=== PATIENT | male | born 1950 | race Two or more races ===

== ENCOUNTER 2019-07-29 14:26 | Emergency (ER) | payer OTHER ==
[~2019-07-29] VITALS: Ht 165.1 cm; Wt 90.7 kg
[~2019-07-29 14:26] MED LIST: COZAAR100 MG; DIOVAN40 MG; DOXAZOSIN MESYLA4 MG; FENOFIBRATE134 MG; GEMFIBROZIL600 MG; LIPITOR40 MG; PREDNISONE10 MG; TAMS0.4C
[2019-07-29] MEDS ORDERED: LOSARTAN-HCTZ1 EAC1 PO (14:51)
[2019-07-29] MEDS ORDERED: COLCRYS0.6 MG PO (16:31)
[2019-07-29] MEDS ORDERED: KETO10TA2 PO (16:32)
== END 2019-07-29 16:38 | disposition home or self-care (01) ==
LOC: ER
DX: M10.061 Idiopathic gout, right knee (principal)

== ENCOUNTER 2023-06-18 05:45 | Day surgery (SDC) | payer OTHER ==
[~2023-06-18 05:45] MED LIST changes: +COLCRYS0.6 MG PO; +KETO10TA2 PO; +LOSARTAN-HCTZ1 EAC1 PO
== END 2023-06-18 10:20 | disposition home or self-care (01) ==
LOC: CIR.AMB 05:45
PROVIDERS: ATTEND Surgery Surgery of the Hand
DX: M67.843 Other specified disorders of tendon, right hand (principal); Z20.822 Contact with and (suspected) exposure to COVID-19; I10 Essential (primary) hypertension

== ENCOUNTER 2025-01-13 09:30 | Emergency (ER) | payer OTHER ==
[~2025-01-13] VITALS: Ht 165.1 cm; Wt 90.7 kg
[2025-01-13 09:53] VITALS: BP 164/73; O2SAT 97
[2025-01-13] MEDS ORDERED: ZYLOPRIM100 M1 (09:55)
[2025-01-13] MEDS ORDERED: KETOROLAC TROMETHAMINE 60 MG VIAL IM ONE ×2 (10:15→10:19)
[2025-01-13 11:00] LABS: BASO % 0.2 % (0.1-1.2); EOS # 0.03 (0.04-0.54); EOS % 0.3 % (0.7-7.0); HEMATOCRIT 39.3 % (40.1-51.0); HEMOGLOBIN 13.3 g/dL (13.7-17.5); LYMPH # 1.16 (1.18-3.74); LYMPH % 10.9 % (19.3-53.1); MONO # 1.03 (0.24-0.82); MONO % 9.7 % (4.7-12.5); NEUT # 8.36 (1.56-6.13); NEUT % 78.7 % (34.0-71.1); PLATELET COUNT 281 K/uL (163-369); RED BLOOD COUNT 4.75 M/uL (4.63-6.08); RED CELL DISTRIBUTION WIDTH 14.2 % (11.6-14.4)
[2025-01-13 11:46] LABS: CALCIUM 9.6 mg/dL (8.5-10.1); CREATININE SERUM 1.06 mg/dL (0.70-1.30); GFR 67.93; POTASSIUM 4.05 mEq/L (3.5-5.1); URIC ACID 5.4 mg/dL (3.5-8.5)
== END 2025-01-13 16:41 | disposition home or self-care (01) ==
LOC: ER 09:38
PROVIDERS: Emergency Medicine
DX: M79.604 Pain in right leg (principal); E78.00 Pure hypercholesterolemia, unspecified; I10 Essential (primary) hypertension
CPT/HCPCS: 36415; 93971; 96372; 99284; J1885

== ENCOUNTER 2025-05-06 07:09 | Outpatient (CLI) | payer OTHER ==
[~2025-05-06 07:09] MED LIST changes: +ZYLOPRIM100 M1
== END 2025-05-06 07:10 | disposition home or self-care (01) ==
LOC: NUCLEAR 07:09
PROVIDERS: ATTEND Internal Medicine
DX: I20.1 Angina pectoris with documented spasm (principal)
CPT/HCPCS: 78452; 93017; A9500; J0153